=== PATIENT | male | born 1935 | race Two or more races ===

== ENCOUNTER 2018-04-11 12:18 | Inpatient (IN) | payer MEDICARE, OTHER ==
[2018-04-11] MEDS: SOD CHLORIDE 0.9% 500 ML IV (13:13)
[2018-04-11 13:18] LABS: ADD MAN DIFF? NO
[2018-04-11 13:22] LABS: WHITE BLOOD COUNT 6.9 10^3/ul (4.8-10.8)
[2018-04-11 13:22] LABS: BASOPHILS % 0.3 % (0.0-2.0); EOSINOPHILS % 0.4 % (0.0-7.0); HEMATOCRIT 45.7 % (42.0-52.0); HEMOGLOBIN 15.3 g/dl (14.0-18.0); LYMPHOCYTES # 1.6 10^3/ul (0.8-2.9); LYMPHOCYTES % 22.9 % (15.0-51.0); MEAN CORPUSCULAR HEMOGLOBIN 30.2 pg (29.0-33.0); MEAN CORPUSCULAR HGB CONC 33.5 g/dl (32.0-37.0); MEAN CORPUSCULAR VOLUME 90.1 fl (82.0-101.0); MEAN PLATELET VOLUME 8.8 fl (7.4-10.4); MONOCYTES % 14.8 % (0.0-11.0); NEUTROPHIL # 4.2 10^3/ul (1.6-7.5); NEUTROPHILS % 61.5 % (39.0-77.0); PLATELET COUNT 174 10^3/UL (140-415); RED BLOOD COUNT 5.07 10^6/ul (4.70-6.10); RED CELL DISTRIBUTION WIDTH 12.9 % (11.5-14.5)
[2018-04-11 13:44] LABS: ANION GAP 19 (8-16); BLOOD UREA NITROGEN 18 mg/dl (7-20); CALCIUM 9.2 mg/dl (8.4-10.2); CARBON DIOXIDE 28 mmol/L (21-31); CHLORIDE 103 mmol/L (97-110); CREATININE 1.19 mg/dl (0.61-1.24); GLUCOSE 194 mg/dl (70-220); POTASSIUM 5.1 mmol/L (3.5-5.1); SODIUM 145 mmol/L (135-144)
[2018-04-11 13:56] LABS: B-TYPE NATRIURETIC PEPTIDE 1000 PG/ML (0-450)
[2018-04-11 14:05] LABS: TROPONIN-I 0.122 ng/ml (0.000-0.120)
[2018-04-11] MEDS ORDERED: METOPROLOL 5 MG INJ IV (14:30)
[2018-04-11] MEDS: ALBUTEROL 0.083% (NEB) 2.5 MG/3 ML AMP INH (14:32)
[2018-04-11] MEDS: IPRATROPIUM (NEB) 0.5 MG/2.5 ML AMP INH (14:32)
[2018-04-11 14:46] LABS: MODE NASAL CANNULA; MetHgb Venous 0.3 %; Sample Type Blood venous; Site VENOUS LINE; Venous COHb 0.6 %; Venous Fraction OxyHgb 81.3 %
[2018-04-11] MEDS ORDERED: ONDANSETRON 4 MG INJ IV (15:00)
[2018-04-11] MEDS ORDERED: ACETAMINOPHEN 325 MG TAB PO (15:00)
[2018-04-11] MEDS: ASPIRIN 81 MG TAB PO (15:25)
[2018-04-11] MEDS: DILTIAZEM (CD) 120 MG CAP PO (17:05)
[2018-04-11] MEDS ORDERED: GLUCOSE GEL 15 GRAM TUBE BUCCAL (22:00)
[2018-04-11] MEDS ORDERED: DEXTROSE 50% 50 ML SYRINGE IV ×2 (22:00)
[2018-04-11] MEDS ORDERED: GLUCOSE GEL 15 GRAM TUBE PO ×2 (22:00)
[2018-04-11] MEDS ORDERED: GLUCAGON 1 MG INJ IM (22:00)
[2018-04-11] MEDS: INSULIN ASPART [NOVOLOG] 3 ML PEN SC (22:11)
[2018-04-11] MEDS: INSULIN GLARGINE [LANtus] 3 ML PEN SC (22:14)
[2018-04-11] MEDS ORDERED: morphine 2 MG INJ IV (22:30)
[2018-04-11] MEDS: METHYLPREDNISOLONE 125 MG INJ IV (22:40)
[2018-04-11] MEDS: ENOXAPARIN 80 MG/0.8 ML SYG SC (22:51)
[2018-04-11] MEDS: [UNRECOGNIZED DRUG - REMARK] XX (23:00)
[2018-04-11] MEDS: IPRATROPIUM (NEB) 0.5 MG/2.5 ML AMP HHN ×2 (23:11)
[2018-04-11] MEDS: ALBUTEROL 0.083% (NEB) 2.5 MG/3 ML AMP HHN (23:11)
[2018-04-11] MEDS: AZITHROMYCIN 500MG/NS (PMX) 250 ML IVPB (23:23)
[2018-04-12] MEDS: ACCU-CHEK XX (02:00)
[2018-04-12] MEDS: METHYLPREDNISOLONE 125 MG INJ IV ×3 (05:10→22:14)
[2018-04-12] MEDS: [UNRECOGNIZED DRUG - REMARK] XX ×3 (07:00→22:23)
[2018-04-12 07:18] LABS: HEMATOCRIT 44.7 % (42.0-52.0); HEMOGLOBIN 15.1 g/dl (14.0-18.0); MEAN CORPUSCULAR HEMOGLOBIN 30.1 pg (29.0-33.0); MEAN CORPUSCULAR HGB CONC 33.8 g/dl (32.0-37.0); PLATELET COUNT 169 10^3/UL (140-415); POSITIVE DIFF @See below; RED BLOOD COUNT 5.02 10^6/ul (4.70-6.10); RED CELL DISTRIBUTION WIDTH 12.8 % (11.5-14.5)
[2018-04-12 07:21] LABS: ADD MAN DIFF? YES
[2018-04-12] MEDS ORDERED: METHYLPREDNISOLONE ACET 40 MG/ML 1 ML IU (07:30)
[2018-04-12 07:55] LABS: ALANINE AMINOTRANSFERASE 35 IU/L (13-69); ALBUMIN/GLOBULIN RATIO 1.17; ALKALINE PHOSPHATASE 55 IU/L (42-121); ANION GAP 17 (8-16); ASPARTATE AMINO TRANSFERASE 31 IU/L (15-46); BILIRUBIN,INDIRECT 0.2 mg/dl (0-1.1); BILIRUBIN,TOTAL 0.2 mg/dl (0.2-1.3); BLOOD UREA NITROGEN 19 mg/dl (7-20); CALCIUM 9.4 mg/dl (8.4-10.2); CARBON DIOXIDE 24 mmol/L (21-31); CHLORIDE 109 mmol/L (97-110); GLUCOSE 276 mg/dl (70-220); POTASSIUM 5.2 mmol/L (3.5-5.1); SODIUM 145 mmol/L (135-144); TOTAL PROTEIN 7.4 g/dl (6.1-8.1)
[2018-04-12] MEDS: INSULIN ASPART [NOVOLOG] 3 ML PEN SC ×4 (07:55→20:37)
[2018-04-12 08:23] LABS: ANISOCYTOSIS 1+ (0-0); BAND NEUTROPHILS #M 0.2 10^3/ul (0.0-0.6); BAND NEUTROPHILS % (M) 6 % (0-4); BURR CELLS 1+ (0-0); LYMPHOCYTES #M 0.7 10^3/ul (0.8-2.9); LYMPHOCYTES % (M) 18 % (15-51); MICROCYTOSIS 1+ (0-0); MONOCYTE #M 0.1 10^3/ul (0.3-0.9); MONOCYTES % (M) 3 % (0-11); PLATELET ESTIMATE NORMAL; POIKILOCYTOSIS 1+ (0-0); REACTIVE LYMPHOCYTES #M 0.2 10^3/ul (0.0-0.0); REACTIVE LYMPHOCYTES% (M) 6 % (0-0); SEG NEUT #M 2.7 10^3/ul (1.6-7.5); SEGMENTED NEUTROPHILS (M) % 67 % (39-77); SMUDGE%M 5 % (0-0)
[2018-04-12] MEDS: IPRATROPIUM (NEB) 0.5 MG/2.5 ML AMP HHN ×2 (08:50→17:14)
[2018-04-12] MEDS: ALBUTEROL 0.083% (NEB) 2.5 MG/3 ML AMP HHN ×2 (08:51→17:15)
[2018-04-12] MEDS: DILTIAZEM (CD) 120 MG CAP PO (09:02)
[2018-04-12] MEDS: NICOTINE (21 MG/24 HR) PATCH TRANSDERM (09:03)
[2018-04-12] MEDS: BUDESONIDE (NEB) 0.5MG/2ML AMP HHN ×2 (11:30→19:27)
[2018-04-12 12:09] LABS: TROPONIN-I 0.066 ng/ml (0.000-0.120)
[2018-04-12] MEDS ORDERED: morphine LIQ (10 MG/5 ML) CUP PO (19:00)
[2018-04-12] MEDS: INSULIN GLARGINE [LANtus] 3 ML PEN SC (20:37)
[2018-04-12] MEDS: ENOXAPARIN 80 MG/0.8 ML SYG SC (20:38)
[2018-04-12] MEDS: AZITHROMYCIN 500MG/NS (PMX) 250 ML IVPB (22:58)
[2018-04-13] MEDS: IPRATROPIUM (NEB) 0.5 MG/2.5 ML AMP HHN ×4 (00:16→23:06)
[2018-04-13] MEDS: ALBUTEROL 0.083% (NEB) 2.5 MG/3 ML AMP HHN ×4 (00:16→23:06)
[2018-04-13] MEDS: ACCU-CHEK XX (02:27)
[2018-04-13] MEDS: METHYLPREDNISOLONE 125 MG INJ IV (05:48)
[2018-04-13] MEDS ORDERED: METHYLPREDNISOLONE 40 MG INJ IV (07:00)
[2018-04-13] MEDS: [UNRECOGNIZED DRUG - REMARK] XX (07:00)
[2018-04-13] MEDS: DILTIAZEM (CD) 120 MG CAP PO (08:12)
[2018-04-13] MEDS: NICOTINE (21 MG/24 HR) PATCH TRANSDERM (08:12)
[2018-04-13] MEDS: INSULIN ASPART [NOVOLOG] 3 ML PEN SC ×5 (08:17→22:12)
[2018-04-13] MEDS: BUDESONIDE (NEB) 0.5MG/2ML AMP HHN ×2 (08:17→20:49)
[2018-04-13] MEDS: ENOXAPARIN 80 MG/0.8 ML SYG SC (20:46)
[2018-04-13] MEDS: INSULIN GLARGINE [LANtus] 3 ML PEN SC (20:47)
[2018-04-13] MEDS: AZITHROMYCIN 500MG/NS (PMX) 250 ML IVPB (23:40)
[2018-04-14] MEDS: ACCU-CHEK XX (01:03)
[2018-04-14] MEDS: IPRATROPIUM (NEB) 0.5 MG/2.5 ML AMP HHN ×2 (07:54→16:18)
[2018-04-14] MEDS: ALBUTEROL 0.083% (NEB) 2.5 MG/3 ML AMP HHN ×2 (07:54→16:17)
[2018-04-14] MEDS: BUDESONIDE (NEB) 0.5MG/2ML AMP HHN (07:54)
[2018-04-14 08:17] LABS: AADO2 Arterial 49.1 mmHg (7.0-24.0); Allen Test ACCEPTAB; Arterial Base Excess 0.2 mmol/L (-3.0-3); Arterial Blood Gas Oxygen Sat 89.7 mmHG (95.0-100.0); Arterial COHb 0.3 % (0.0-3.0); Arterial Fraction of Oxyhgb 89.3 % (93.0-99.0); Arterial HCO3 23.8 mmol/L (22.0-26.0); Arterial MetHb 0.2 % (0.0-1.5); Arterial Total Hemglobin 13.6 g/dl (12.0-18.0); Arterial pCO2 35.4 mmhg (35-45); MODE ROOM AIR; Site Right Radial
[2018-04-14] MEDS: NICOTINE (21 MG/24 HR) PATCH TRANSDERM (08:30)
[2018-04-14] MEDS: DILTIAZEM (CD) 120 MG CAP PO (08:31)
[2018-04-14] MEDS: INSULIN ASPART [NOVOLOG] 3 ML PEN SC ×3 (08:40→17:55)
[2018-04-14] MEDS: AMIODARONE 200 MG TAB PO (12:02)
== END 2018-04-14 20:35 | disposition home or self-care (01) | DRG 281 ==
LOC: TEL 20:33 → MS4 04-12 05:47 → TEL 04-12 06:08 → E/R 12:18 → TEL 14:33
DX: I21.4 Non-ST elevation (NSTEMI) myocardial infarction (principal); J44.1 Chronic obstructive pulmonary disease with (acute) exacerbation; R06.03 Acute respiratory distress; I48.91 Unspecified atrial fibrillation; E11.9 Type 2 diabetes mellitus without complications; R05 Cough; M19.90 Unspecified osteoarthritis, unspecified site; F41.9 Anxiety disorder, unspecified; E78.5 Hyperlipidemia, unspecified; R22.9 Localized swelling, mass and lump, unspecified; M81.0 Age-related osteoporosis without current pathological fracture; M40.209 Unspecified kyphosis, site unspecified; Z95.0 Presence of cardiac pacemaker; H91.90 Unspecified hearing loss, unspecified ear; R41.3 Other amnesia; J32.9 Chronic sinusitis, unspecified; I51.7 Cardiomegaly; N40.0 Benign prostatic hyperplasia without lower urinary tract symptoms; F17.200 Nicotine dependence, unspecified, uncomplicated; I10 Essential (primary) hypertension; Z91.19 Patient's noncompliance with other medical treatment and regimen; M53.0 Cervicocranial syndrome; Z79.82 Long term (current) use of aspirin; Z79.4 Long term (current) use of insulin; I25.10 Atherosclerotic heart disease of native coronary artery without angina pectoris; Z79.01 Long term (current) use of anticoagulants
CPT/HCPCS: 36415; 36600; 71045; 80048; 80053; 82803; 82962; 83735; 83880; 84443; 84484; 85025; 93005; 93306; 94640; 94664; 99285-25